=== PATIENT | female | born 1965 | race Caucasian/White ===

== ENCOUNTER 2019-05-07 01:06 | Emergency (ER) | payer BC, OTHER ==
[~2019-05-07] VITALS: Ht 170.2 cm; Wt 110.0 kg
[~2019-05-07 01:06] MED LIST: SULF-182; TRAM50TA2 PO
[2019-05-07 01:11] VITALS: Ht 170.2 cm; Wt 110.0 kg
[2019-05-07] MEDS ORDERED: SOD CHLORIDE 0.9% 1,000 ML IV STA (01:19)
[2019-05-07] MEDS ORDERED: LORAZEPAM 0.5 MG TAB PO ONE (01:30)
--- NOTE | 2019-05-07 01:44 | ERD ---
ER Documentation Chief Complaint Chief Complaint bib ra from home for palpitation, HPI 54-year-old woman brought in by EMS from home for palpitations beginning after waking up this evening while asleep. She has had constant palpitations since waking up about half an hour ago. She denies chest pain, no cough, no fevers or chills, no vomiting or diarrhea, no headache or blurry vision. Patient was transported here by EMS without further complications ROS All systems reviewed and are negative except as per history of present illness. Medications Home Meds Active Scripts Tramadol HCl (Tramadol HCl) 50 Mg Tablet, 50 MG PO Q4 PRN for PAIN, #20 TAB Prov:STEFANI HOOVER MD 06/13/16 Reported Medications Sulfamethoxazole-Trimethoprim* (Sulfamethoxazole-Trimethoprim* DS) 1 Tab Tablet 06/13/10 Allergies Allergies: Coded Allergies: Ibuprofen (Verified Allergy, Mild, SWELLING LIPS, TOUNGE, ITCHING , 06/13/10) Tetracycline (Verified Allergy, Mild, RUNS IN FAMILY, 06/13/10) Uncoded Allergies: ASPRIN (Allergy, Mild, SWELLING, ITCHING, 06/11/10) PMhx/Soc None History of Surgery: Yes (ABD LAPAROSCOPY) Anesthesia Reaction: Yes (HYPOTHERMIA) Hx Neurological Disorder: No Hx Respiratory Disorders: Yes (PNEUMONIA) Hx Cardiac Disorders: No Hx Psychiatric Problems: No Hx Miscellaneous Medical Probl: Yes (FIBROMYALGIA) Hx Alcohol Use: No Hx Substance Use: No Hx Tobacco Use: No Smoking Status: Never smoker FmHx Family History: No diabetes Physical Exam Vitals Vital Signs Date Temp Pulse Resp B/P (MAP) Pulse Ox O2 O2 Flow FiO2 Time Delivery Rate 05/07/19 86 16 120/62 98 Room Air 01:56 (81) 05/07/19 98.3 103 19 154/81 100 Room Air 01:11 (105) 05/07/19 98.3 96 19 205/73 100 01:11 (117) Physical Exam GENERAL: Well-developed, well-nourished, well-hydrated, appears anxious, afebrile NEURO: Alert and oriented 3, cranial nerves II through XII intact bilaterally, pupils equal round reactive to light, no focal deficits or facial asymmetry, sensation intact distally Strength 5/5 in upper and lower extremities b ilaterally CARDIAC: Tachycardic and regular, no murmurs rubs or gallops LUNGS: Clear bilaterally no wheezing crackles or stridor EXTREMITIES: No clubbing cyanosis or edema, calves are bilaterally symmetrical, no Homans sign, no popliteal cord sign. Distal pulses equal and bilateral PSYCH: Anxious Result Diagram: 05/07/19 0120 05/07/19 0120 Results 24 hrs Laboratory Tests Test 05/07/19 01:20 White Blood Count 9.5 10^3/ul Red Blood Count 5.22 10^6/ul Hemoglobin 14.7 g/dl Hematocrit 45.4 % Mean Corpuscular Volume 87.0 fl Mean Corpuscular Hemoglobin 28.2 pg Mean Corpuscular Hemoglobin Concent 32.4 g/dl Red Cell Distribution Width 12.8 % Platelet Count 303 10^3/UL Mean Platelet Volume 9.6 fl Immature Granulocytes % 0.300 % Neutrophils % 44.1 % Lymphocytes % 41.1 % Monocytes % 9.8 % Eosinophils % 3.4 % Basophils % 1.3 % Nucleated Red Blood Cells % 0.0 /100WBC Immature Granulocytes # 0.030 10^3/ul Neutrophils # 4.2 10^3/ul Lymphocytes # 3.9 10^3/ul Monocytes # 0.9 10^3/ul Eosinophils # 0.3 10^3/ul Basophils # 0.1 10^3/ul Nucleated Red Blood Cells # 0.0 10^3/ul Sodium Level 141 mmol/L Potassium Level 3.9 mmol/L Chloride Level 108 mmol/L Carbon Dioxide Level 24 mmol/L Anion Gap 9 Blood Urea Nitrogen 15 mg/dl Creatinine 0.74 mg/dl Est Glomerular Filtrat Rate mL/min > 60 mL/min Glucose Level 169 mg/dl Calcium Level 8.9 mg/dl Total Bilirubin 0.4 mg/dl Direct Bilirubin 0.00 mg/dl Indirect Bilirubin 0.4 mg/dl Aspartate Amino Transf (AST/SGOT) 21 IU/L Alanine Aminotransferase (ALT/SGPT) 34 IU/L Alkaline Phosphatase 64 IU/L Troponin I < 0.012 ng/ml Total Protein 7.0 g/dl Albumin 3.9 g/dl Globulin 3.10 g/dl Albumin/Globulin Ratio 1.25 Lipase 171 U/L Current Medications Medications Dose Sig/Vandana Start Time Status Last (Trade) Ordered Route PRN Stop Time Admin Dose Reason Admin Lorazepam 0.5 mg ONCE ONCE 05/07/19 DC 05/07/19 (Ativan) PO 01:30 01:29 05/07/19 01:31 Sodium 1,000 ml @ Q1H STAT 05/07/19 DC 05/07/19 Chloride 1,000 mls/hr IV 01:19 01:29 05/07/19 02:18 Procedures/MDM IV line was established patient was placed on commercial agent rhythm strip revealed a narrow complex tachycardia at 100 bpm with upright P and T waves. Patient was afebrile I administered 1 L normal saline IV and lorazepam 0.5 mg p.o. x1. EKG performed, read by me revealed a normal sinus rhythm at 93 bpm, normal axis, narrow QRS complex, no concerning ST elevations or depressions noted, prolonged QT of 504 ms. CBC and electrolytes are normal, liver function tests are normal, troponin was negative Differential diagnoses considered, included but not limited to acute coronary syndrome, pulmonary embolism, aortic dissection, abdominal aortic aneurysm, sepsis, stroke, meningitis, encephalitis, pneumonia, appendicitis, cholecystit is, bowel obstruction, pyelonephritis, nephrolithiasis, cystitis, as well as metabolic, hematologic, and electrolyte abnormalities. As well as abscess, cellulitis, fractures, and dislocations. Patient feels much better at this time, and vital signs are normal, symptoms have improved. I did give strict instructions to return to the ED if symptoms continue or worsen, patient will otherwise follow-up with primary care physician. Patient understood instructions and agreed to plan. Disclaimer: Inadvertent spelling and grammatical errors are likely due to EHR/dictation software use and do not reflect on the overall quality of patient care. Also, please note that the electronic time recorded on this note does not necessarily reflect the actual time of the patient encounter. Departure Diagnosis: Primary Impression: Palpitations Condition: Good NANY MARIN MD May 07, 2019 01:44
[2019-05-07 05:38] VITALS: BP 119/82; PULSE 81; RESP 16
== END 2019-05-07 05:42 | disposition home or self-care (01) ==
LOC: E/R 01:06
DX: R00.2 Palpitations (principal)
CPT/HCPCS: 36415; 80053; 83690; 84484; 85025; 93005; 99284; J7030